=== PATIENT | female | born 1970 | race Caucasian/White ===

== ENCOUNTER 2019-01-08 22:36 | Emergency (ER) | payer MEDICAID ==
[~2019-01-08] VITALS: Ht 165.1 cm; Wt 77.1 kg
[2019-01-08 23:09] VITALS: Ht 165.1 cm; Wt 77.1 kg
[2019-01-09 02:28] VITALS: BP 110/43
== END 2019-01-09 02:28 | disposition home or self-care (01) ==
LOC: ED 22:36
DX: R10.9 Unspecified abdominal pain (principal); Z90.710 Acquired absence of both cervix and uterus

== ENCOUNTER 2019-06-05 10:41 | Emergency (ER) | payer MEDICAID ==
[~2019-06-05] VITALS: Ht 165.1 cm; Wt 77.1 kg
[2019-06-05 10:58] VITALS: Ht 165.1 cm; Wt 77.1 kg
[2019-06-05 13:13] VITALS: BP 139/60
== END 2019-06-05 13:13 | disposition home or self-care (01) ==
LOC: ED 10:41
DX: M25.552 Pain in left hip (principal); G89.29 Other chronic pain; Z90.710 Acquired absence of both cervix and uterus